=== PATIENT | female | born 1985 | race Caucasian/White ===

== ENCOUNTER 2020-08-22 21:20 | Emergency (ER) | payer MEDICAID, OTHER ==
[~2020-08-22] VITALS: Ht 170.2 cm; Wt 113.4 kg
[2020-08-22 21:51] LABS: BILIRUBIN,URINE NEGATIVE (NEGATIVE); CLARITY,URINE CLEAR; COLOR,URINE YELLOW; GLUCOSE, URINE (UA) NEGATIVE (NEGATIVE); KETONES,URINE 1+ (NEGATIVE); LEUKOCYTE ESTERASE ,URINE NEGATIVE (NEGATIVE); NITRITE,URINE NEGATIVE (NEGATIVE); PROTEIN,URINE NEGATIVE (NEGATIVE)
[2020-08-22 22:33] LABS: BACTERIA,URINE TRACE /HPF; WBC,URINE 0-2 /HPF
[2020-08-22 23:28] LABS: AMPHETAMINE SCREEN, URINE POSITIVE (NEGATIVE); BARBITURATE SCREEN URINE NEGATIVE (NEGATIVE); BENZODIAZEPINES SCREEN URINE NEGATIVE (NEGATIVE); CANNABINOID SCREEN, URINE NEGATIVE (NEGATIVE); COCAINE SCREEN URINE NEGATIVE (NEGATIVE); METHADONE STAT NEGATIVE (NEGATIVE); METHAMPHETAMINE SCREEN URINE S POSITIVE (NEGATIVE); OPIATE SCREEN URINE NEGATIVE (NEGATIVE); OXYCODONE STAT NEGATIVE (NEGATIVE); PROPOXYPHENE STAT NEGATIVE (NEGATIVE); TRICYCLIC ANTIDEPRESSANTS SCRE NEGATIVE (NEGATIVE)
[2020-08-22 23:29] LABS: BASOPHILS % (AUTO) 0 % (0-10); EOSINOPHILS % (AUTO) 0 % (0-10); HEMATOCRIT 32 % (35-52); HEMOGLOBIN 10.6 g/dL (11.5-16.0); LYMPHOCYTES % (AUTO) 16 % (12-44); MEAN CORPUSCULAR HEMOGLOBIN 30 pg (25-34); MEAN CORPUSCULAR HGB CONC 33 g/dL (32-36); MEAN CORPUSCULAR VOLUME 90 fL (80-99); MEAN PLATELET VOLUME 11.3 fL (9.0-12.2); MONOCYTES # (AUTO) 0.8 10^3/uL (0.0-1.0); MONOCYTES % (AUTO) 6 % (0-12); NEUTROPHILS # (AUTO) 9.8 10^3/uL (1.8-7.8); NEUTROPHILS % (AUTO) 77 % (42-75); PLATELET COUNT 232 10^3/uL (130-400); WHITE BLOOD COUNT 12.8 10^3/uL (4.3-11.0)
--- NOTE | 2020-08-22 23:30 | ED Back Pain ---
General Chief Complaint: Back Problems Stated Complaint: ABD PAIN Nursing Triage Note: PRESENTS VIA [facility] EMS [facility] FROM [facility] ER W/CO L FLANK PAIN AND UNKNOWN GESTATION . UPON ARRIVAL PT RATES L FLANK DISCOMFORT 2/10 ABD DESCRIBES DISCOMFORT "DULL." PT STATES SHE BELIEVES HER LAST PERIOD WAS SOMETIME IN MARCH. PT STATES L FLANK DISCOMFORT BEGAN AT APPROX 1700 THIS EVENING. PT DENIES VAGINAL BLEEDING OR DISCHARGE. PT STATES SHE SHOT UP METHAMPHETAMINE A COUPLE DAYS AGO. PT NOTED TO BE RESTLESS AND JITTERY. 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 Source of Information: Patient Exam Limitations: No Limitations History of Present Illness Date Seen by Provider: Aug 22, 2020 Time Seen by Provider: 22:41 Initial Comments Patient presents ER by EMS from [facility] with a chief complaint of 2:00 in the afternoon she had left flank pain radiating down from her ribs to her kidney to her groin. She has no history of kidney stones. No hematuria or dysuria. She thinks she is around 20 weeks but is uncertain. She has no care. This is a G3. She states she had a little discomfort yesterday and used some methamphetamines yesterday as well. No fevers chills nausea or vomiting. Her pain was an 8 out of 10 but by the time she arrived here it was a 2 out of 10. Allergies and Home Medications Allergies Coded Allergies: morphine (Verified Adverse Reaction, Unknown, Hives, 08/22/20) Home Medications Cephalexin 500 Mg Tablet, 500 MG PO TID Prescribed by: SUSAN RIGGINS on 08/25/20 1154 Hydrocodone/Acetaminophen 1 Each Tablet, 1 TAB PO Q6H PRN for PAIN-MODERATE (5- 7) Prescribed by: SUSAN RIGGINS on 08/25/20 1155 Patient Home Medication List Home Medication List Reviewed: Yes Review of Systems Constitutional: No chills, No diaphoresis EENTM: No ear discharge, No ear pain Respiratory: No cough, No phlegm, No short of breath Cardiovascular: No chest pain, No palpitations Gastrointestinal: abdominal pain; No constipation, No diarrhea, No nausea Genitourinary: No discharge, No dysuria Musculoskeletal: No back pain, No joint pain All Other Systems Reviewed Negative Unless Noted: Yes Past Rxewftr-Wfpful-Fbmlhk Hx Patient Social History Tobacco Use?: Yes Smoking Status: Current Everyday Smoker Substance type: Methamphetamine, Hallucinogens Pt feels they are or have been: No Physical Exam Vital Signs Vital Signs - First Documented 08/22/20 21:20 Temp 35.8 Pulse 104 Resp 20 B/P (MAP) 134/105 (115) Pulse Ox 100 O2 Delivery Room Air Capillary Refill : Less Than 3 Seconds Height, Weight, BMI Height: '" Weight: lbs. oz. kg; 39.00 BMI Method: General Appearance: WD/WN, Mild Distress HEENT: PERRL/EOMI, Pharynx Normal, Moist Mucous Membranes Neck: Full Range of Motion, Normal Inspection Cardiovascular: Regular Rate, Rhythm, No Edema, Normal Peripheral Pulses Respiratory: Lungs Clear, Normal Breath Sounds, No Accessory Muscle Use, No Respiratory Distress Gastrointestinal: Normal Bowel Sounds, Non Tender, Soft Extremity: Normal Capillary Refill, Normal Inspection, No Pedal Edema Neurologic/Psychiatric: Alert, Oriented x3, Other (Irregular, nonrhythmic jerking motions, constantly in motion.) Skin: Normal Color, Warm/Dry Progress/Results/Core Measures Results/Orders Lab Results Laboratory Tests Test 08/22/20 21:30 08/22/20 23:23 08/23/20 00:00 Range/Units Urine Color YELLOW Urine Clarity CLEAR Urine pH 7.0 5-9 Urine Specific [place] <=1.005 1.016-1.022 Urine Protein NEGATIVE NEGATIVE Urine Glucose (UA) NEGATIVE NEGATIVE Urine Ketones 1+ H NEGATIVE Urine Nitrite NEGATIVE NEGATIVE Urine Bilirubin NEGATIVE NEGATIVE Urine Urobilinogen 0.2 < = 1.0 MG/DL Urine Leukocyte Esterase NEGATIVE NEGATIVE Urine RBC (Auto) 3+ H NEGATIVE Urine RBC 10-25 H /HPF Urine WBC 0-2 /HPF Urine Crystals NONE /LPF Urine Bacteria TRACE /HPF Urine Casts NONE /LPF Urine Mucus NEGATIVE /LPF Urine Culture Indicated NO Urine Opiates Screen NEGATIVE NEGATIVE Urine Oxycodone Screen NEGATIVE NEGATIVE Urine Methadone Screen NEGATIVE NEGATIVE Urine Propoxyphene Screen NEGATIVE NEGATIVE Urine Barbiturates Screen NEGATIVE NEGATIVE Ur Tricyclic Antidepressants Screen NEGATIVE NEGATIVE Urine Phencyclidine Screen NEGATIVE NEGATIVE Urine Amphetamines Screen POSITIVE H NEGATIVE Urine Methamphetamines Screen POSITIVE H NEGATIVE Urine Benzodiazepines Screen NEGATIVE NEGATIVE Urine Cocaine Screen NEGATIVE NEGATIVE Urine Cannabinoids Screen NEGATIVE NEGATIVE White Blood Count 12.8 H 4.3-11.0 10^3/uL Red Blood Count 3.56 L 3.80-5.11 10^6/uL Hemoglobin 10.6 L 11.5-16.0 g/dL Hematocrit 32 L 35-52 % Mean Corpuscular Volume 90 80-99 fL Mean Corpuscular Hemoglobin 30 25-34 pg Mean Corpuscular Hemoglobin Concent 33 32-36 g/dL Red Cell Distribution Width 14.1 10.0-14.5 % Platelet Count 232 130-400 10^3/uL Mean Platelet Volume 11.3 9.0-12.2 fL Immature Granulocyte % (Auto) 1 % Neutrophils (%) (Auto) 77 H 42-75 % Lymphocytes (%) (Auto) 16 12-44 % Monocytes (%) (Auto) 6 0-12 % Eosinophils (%) (Auto) 0 0-10 % Basophils (%) (Auto) 0 0-10 % Neutrophils # (Auto) 9.8 H 1.8-7.8 10^3/uL Lymphocytes # (Auto) 2.0 1.0-4.0 10^3/uL Monocytes # (Auto) 0.8 0.0-1.0 10^3/uL Eosinophils # (Auto) 0.0 0.0-0.3 10^3/uL Basophils # (Auto) 0.0 0.0-0.1 10^3/uL Immature Granulocyte # (Auto) 0.1 0.0-0.1 10^3/uL Sodium Level 140 135-145 MMOL/L Potassium Level 3.9 3.6-5.0 MMOL/L Chloride Level 109 H 98-107 MMOL/L Carbon Dioxide Level 20 L 21-32 MMOL/L Anion Gap 11 5-14 MMOL/L Blood Urea Nitrogen 6 L 7-18 MG/DL Creatinine 0.62 0.60-1.30 MG/DL Estimat Glomerular Filtration Rate > 60 BUN/Creatinine Ratio 10 Glucose Level 96 70-105 MG/DL Calcium Level 8.1 L 8.5-10.1 MG/DL Corrected Calcium 8.7 8.5-10.1 MG/DL Total Bilirubin 0.5 0.1-1.0 MG/DL Aspartate Amino Transf (AST/SGOT) 15 5-34 U/L Alanine Aminotransferase (ALT/SGPT) 20 0-55 U/L Alkaline Phosphatase 60 40-136 U/L C-Reactive Protein High Sensitivity 2.00 H 0.00-0.50 MG/DL Total Protein 6.2 L 6.4-8.2 GM/DL Albumin 3.2 3.2-4.5 GM/DL Human Chorionic Gonadotropin, Quant 3252 H <5 MIU/ML My Orders Orders - CLIFF ALANIZ Ua Culture If Indicated (08/22/20 21:46) Urine Bedside (08/22/20 21:46) Cbc With Automated Diff (08/22/20 23:02) Comprehensive Metabolic Panel (08/22/20 23:02) Hs C Reactive Protein (08/22/20 23:02) Drug Screen Stat (Urine) (08/22/20 23:02) Us Ob Preg Late(14-40wks)[id number] (08/23/20 00:13) Ed Iv/Invasive Line Start (08/23/20 00:13) Hcg,Quantitative (08/23/20 00:22) Vital Signs/I&O 08/22/20 08/23/20 21:20 01:45 Temp 35.8 36.9 Pulse 104 94 Resp 20 17 B/P (MAP) 134/105 (115) 107/55 (115) Pulse Ox 100 99 O2 Delivery Room Air Room Air Blood Pressure Mean: 115 Progress Progress Note : Time: 23:28 Progress Note Patient does not seem to be in any acute distress now. She is produced urine which does have some blood in it. It is very likely if she had a kidney stone she has already passed it as she is no longer in any acute distress. We have not given her anything for pain. She is ambulating. We will obtain some labs. Urinalysis and drug screen from [facility] demonstrates MDMA as well as methamphetamines positive. Diagnostic Imaging Diagonstic Imaging: Ultrasound Plain Films/CT/US/NM/MRI: abdomen Comments 23-week healthy intrauterine gestation with plenty of movement and heart tones 140. Limited unremarkable pelvic ultrasound with 23-week intrauterine and heart rate of 140 bpm. Anterior placenta with no placental previa. Normal amniotic fluid volume. Estimated date of delivery 12-20-2020 [facility]. [place], [place] NAME: EVER CROWE MED REC#: [id number] PT STATUS: DEP ER : 1985 PHYSICIAN: CLIFF ALANIZ MD ADMIT DATE: 08/22/20/ER Signed Date of Exam:08/23/20 US OB PREG LATE(14-40WKS)[id number] INDICATION: Left-sided abdominal pain. Methamphetamine use. Rule out ectopic. TECHNIQUE: Multiple real-time grayscale images were obtained over the gravid uterus. COMPARISON: None FINDINGS: Limited obstetric ultrasound demonstrates single live intrauterine in breech presentation. Anatomic measurements correspond to a 23 week 0 day gestation. heart rate 140 bpm. Anterior placenta without evidence of previa. MICHAEL 12.9 cm. Left ovary measures 3.2 x 1.4 x 3.3 cm. No adnexal mass or fluid collections. Normal flow by color Doppler in the left ovary. The right ovary is not identified. IMPRESSION: Unremarkable limited obstetric ultrasound with anatomic measurements corresponding to a 23 week, 0 day gestation. heart rate 140 bpm. Biometrical measurements are as follows: Biparietal 5.67 cm, age 23 weeks 3 days. Head circumference 21.04 cm, age 23 weeks 1 days. Abdominal circumference 17.60 cm, age 22 weeks 4 days. Femur length 3.9 cm, age 22 weeks 4 days. Sonographic estimate age: 23 weeks 0 days. Sonographic estimated date of delivery: 12/20/2020. Estimated Weight: 519 gm (+/- 76g gm). LMP percentile: %. heart rate: 140 beats per minute. number: 1 of 1. Dictated by: Dictated on workstation # [id number] Dict: 08/23/20 0808 Trans: 08/23/20 1205 [facility] [id number] Interpreted by: SUSAN STEWART MD Electronically signed by: SUSAN STEWART MD 08/23/20 1205 Reviewed: Reviewed by Me Consults : Consulting Physician: GALINA VALDIVIA DO Consults Notes Discussed the case with Dr. Valdivia, obstetrics and he recommends ultrasound at this time. If the patient is still calm and comfortable and not having any pain then a CT to look for kidney stone is probably not indicated right now. He agrees that the pain sounds like a kidney stone given her little bit of blood in the urine however without having any previous care we cannot rule out ectopic. Departure Impression Primary Impression: Hematuria Qualified Codes: R31.9 - Hematuria, unspecified Additional Impressions: Flank pain Qualified Codes: Z3A.23 - 23 weeks gestation of Methamphetamine dependence Disposition: HOME, SELF-CARE Condition: Stable Departure-Patient Inst. Decision time for Depature: 01:26 Referrals: GALINA VALDIVIA DENNIS G MD SHAW, ANGELA C DO Patient Instructions: Drug Abuse and Drug Addiction (DC), Care, Flank Pain Add. Discharge Instructions: Please establish care with a naturopathic doctor at your earliest convenience. I implore you to stop using methamphetamines. If you need help stopping methamphetamines you can contact [facility] as they do have some doctors who specialize in addiction medicine. Tylenol 1000 mg every 8 hours as necessary for pain. Drink plenty of fluids. All discharge instructions reviewed with patient and/or family. Voiced understanding. CLIFF ALANIZ Aug 22, 2020 23:30
[2020-08-22 23:43] LABS: ALBUMIN 3.2 GM/DL (3.2-4.5); CHLORIDE 109 MMOL/L (98-107); POTASSIUM 3.9 MMOL/L (3.6-5.0); SODIUM 140 MMOL/L (135-145)
[2020-08-22 23:44] LABS: CALCIUM 8.1 MG/DL (8.5-10.1)
[2020-08-22 23:45] LABS: GLUCOSE 96 MG/DL (70-105); TOTAL PROTEIN 6.2 GM/DL (6.4-8.2)
[2020-08-22 23:46] LABS: CARBON DIOXIDE 20 MMOL/L (21-32)
[2020-08-22 23:47] LABS: BILIRUBIN,TOTAL 0.5 MG/DL (0.1-1.0)
[2020-08-22 23:49] LABS: ALKALINE PHOSPHATASE 60 U/L (40-136); CREATININE SERUM 0.62 MG/DL (0.60-1.30); GFR ESTIMATED > 60
[2020-08-22 23:50] LABS: BUN/CREATININE RATIO 10
[2020-08-22 23:52] LABS: ALANINE AMINOTRANSFERASE 20 U/L (0-55)
[2020-08-23 01:45] VITALS: BP 107/55
--- NOTE | 2020-08-23 08:17 | Diagnostic Imaging Report ---
INDICATION: Left-sided abdominal pain. Methamphetamine use. Rule out ectopic. TECHNIQUE: Multiple real-time grayscale images were obtained over the gravid uterus. COMPARISON: None FINDINGS: Limited obstetric ultrasound demonstrates single live intrauterine in breech presentation. Anatomic measurements correspond to a 23 week 0 day gestation. heart rate 140 bpm. Anterior placenta without evidence of previa. MICHAEL 12.9 cm. Left ovary measures 3.2 x 1.4 x 3.3 cm. No adnexal mass or fluid collections. Normal flow by color Doppler in the left ovary. The right ovary is not identified. IMPRESSION: Unremarkable limited obstetric ultrasound with anatomic measurements corresponding to a 23 week, 0 day gestation. heart rate 140 bpm. Biometrical measurements are as follows: Biparietal 5.67 cm, age 23 weeks 3 days. Head circumference 21.04 cm, age 23 weeks 1 days. Abdominal circumference 17.60 cm, age 22 weeks 4 days. Femur length 3.9 cm, age 22 weeks 4 days. Sonographic estimate age: 23 weeks 0 days. Sonographic estimated date of delivery: 12/20/2020. Estimated Weight: 519 gm (+/- 76g gm). LMP percentile: %. heart rate: 140 beats per minute. number: 1 of 1. Dictated by: Dictated on workstation # [id number]
== END 2020-08-23 01:45 | disposition home or self-care (01) ==
LOC: ER 21:21
DX: O26.892 Other specified pregnancy related conditions, second trimester (principal); R31.9 Hematuria, unspecified; R10.9 Unspecified abdominal pain; F15.20 Other stimulant dependence, uncomplicated; F17.200 Nicotine dependence, unspecified, uncomplicated; Z3A.20 20 weeks gestation of pregnancy
CPT/HCPCS: 36415; 76805; 80053; 80306; 81000; 84702; 84703; 85025; 86141

== ENCOUNTER 2020-08-25 09:09 | Emergency (ER) | payer MEDICAID ==
[~2020-08-25] VITALS: Ht 167.7 cm; Wt 112.0 kg
--- NOTE | 2020-08-25 09:55 | ED Abdominal Pain ---
General Chief Complaint: Back Problems Stated Complaint: BACK PAIN Nursing Triage Note: Pt ambulatory into ER with complaint of back pain since last night. Pt states that she was in the ER two nights ago for the same thing, but they didn't do much. She states that they believe it to be a kidney stone but do to being they wouldnt scan her. Pain at a 6/10 on Lower Left side. Source of Information: Patient Exam Limitations: No Limitations History of Present Illness Date Seen by Provider: Aug 25, 2020 Time Seen by Provider: 09:35 Initial Comments Patient is a 34-year-old female who presents to the emergency department today with a chief complaint of left-sided back pain and left flank pain onset last evening. Patient was here in the emergency room 3 days ago with similar complaints and was diagnosed clinically with a kidney stone. Patient is approximately 23 weeks , . Last delivery was 2-1/2 years ago. Patient denies any dysuria or urgency but does have urinary frequency. Labs were reviewed from her visit 3 days ago she had normal renal function and hematuria without any signs of infection. She did have a OB ultrasound which showed a normal intrauterine at 23 weeks without any obvious abnormalities. Normal placenta. Patient states that she got better for a day or so and then last evening pain recurred. She did take Tylenol, 2 tablets about 2 hours prior to arrival without any relief of symptoms. Patient rates her pain at "6". She denies abnormal vaginal discharge or vaginal bleeding. No recent fevers or chills. No other complaints of illness or injury. Patient did not have a renal ultrasound done 3 days ago to evaluate for hydronephrosis. All other review of systems reviewed and negative except as stated above. Timing/Duration: 12-24 Hours Severity/Quality: Moderate Location: LUQ, LLQ Radiation: Flank Associated Symptoms: Nausea/Vomiting Allergies and Home Medications Allergies Coded Allergies: morphine (Verified Adverse Reaction, Unknown, Hives, 08/22/20) Patient Home Medication List Home Medication List Reviewed: Yes Review of Systems Review of Systems Constitutional: see HPI EENTM: No Symptoms Reported Respiratory: Other (Hurts to take a deep breath on the left) Cardiovascular: No Symptoms Reported Gastrointestinal: Abdominal Pain Genitourinary: Frequency Musculoskeletal: no symptoms reported Skin: no symptoms reported All Other Systems Reviewed Negative Unless Noted: Yes Past Yjnrfux-Cddxzo-Wjyyzj Hx Patient Social History Tobacco Use?: No Use of E-Cig and/or Vaping dev: No Substance use?: Yes Substance type: Methamphetamine Alcohol Use?: No Pt feels they are or have been: No Physical Exam Vital Signs Vital Signs - First Documented 08/25/20 09:22 Temp 36.8 Pulse 98 Resp 20 B/P (MAP) 138/84 (102) Pulse Ox 100 O2 Delivery Room Air Capillary Refill : Less Than 3 Seconds Height/Weight/BMI Height: '" Weight: lbs. oz. kg; 39.00 BMI Method: General Appearance: WD/WN, no apparent distress HEENT: PERRL/EOMI Neck: full range of motion Respiratory: lungs clear, normal breath sounds, no respiratory distress, no accessory muscle use Cardiovascular: regular rate, rhythm Gastrointestinal: soft, tenderness (Left flank), other (Gravid uterus just above the umbilicus) Back: normal inspection, CVA tenderness (L) Neurologic/Psychiatric: alert, normal mood/affect, oriented x 3 Skin: normal color, warm/dry Progress/Results/Core Measures Results/Orders Lab Results Laboratory Tests Test 08/25/20 09:44 08/25/20 09:57 Range/Units Urine Color YELLOW Urine Clarity CLEAR Urine pH 7.0 5-9 Urine Specific [place] 1.010 L 1.016-1.022 Urine Protein 1+ H NEGATIVE Urine Glucose (UA) NEGATIVE NEGATIVE Urine Ketones NEGATIVE NEGATIVE Urine Nitrite NEGATIVE NEGATIVE Urine Bilirubin NEGATIVE NEGATIVE Urine Urobilinogen 0.2 < = 1.0 MG/DL Urine Leukocyte Esterase 3+ H NEGATIVE Urine RBC (Auto) 3+ H NEGATIVE Urine RBC 10-25 H /HPF Urine WBC 50-100 H /HPF Urine Squamous Epithelial Cells NONE /HPF Urine Crystals NONE /LPF Urine Bacteria TRACE /HPF Urine Casts NONE /LPF Urine Mucus NEGATIVE /LPF Urine Culture Indicated YES Sodium Level 140 135-145 MMOL/L Potassium Level 4.3 3.6-5.0 MMOL/L Chloride Level 108 H 98-107 MMOL/L Carbon Dioxide Level 22 21-32 MMOL/L Anion Gap 10 5-14 MMOL/L Blood Urea Nitrogen 3 L 7-18 MG/DL Creatinine 0.56 L 0.60-1.30 MG/DL Estimat Glomerular Filtration Rate > 60 BUN/Creatinine Ratio 5 Glucose Level 97 70-105 MG/DL Calcium Level 8.5 8.5-10.1 MG/DL My Orders Orders - SUSAN RIGGINS MD Basic Metabolic Panel (08/25/20 09:44) Ua Culture If Indicated (08/25/20 09:44) Us Renal Bilateral [id number] (08/25/20 09:44) Urine Culture (08/25/20 09:44) Hydrocodone/Apap 5/325 Tablet (Lortab 5 (08/25/20 11:30) Medications Given in ED Current Medications Medications Dose Ordered Sig/Rashid Route Start Time Stop Time Status Last Admin Dose Admin Acetaminophen/ Hydrocodone Bitart 1 ea ONCE ONCE PO 08/25/20 11:30 08/25/20 11:31 DC 08/25/20 11:29 1 EA Vital Signs/I&O 08/25/20 09:22 Temp 36.8 Pulse 98 Resp 20 B/P (MAP) 138/84 (102) Pulse Ox 100 O2 Delivery Room Air Blood Pressure Mean: 102 Diagnostic Imaging Diagonstic Imaging: Ultrasound Plain Films/CT/US/NM/MRI: other (Renal) Comments [facility]. [place], [place] NAME: EVER CROWE Jordi [facility] REC#: [id number] PT STATUS: REG ER : 1985 PHYSICIAN: SUSAN RIGGINS MD ADMIT DATE: 08/25/20/ER Draft Date of Exam:08/25/20 US RENAL BILATERAL [id number] PROCEDURE: US Renal Bilateral. TECHNIQUE: Multiple real-time grayscale images were obtained over the kidneys in various projections bilaterally. INDICATION: Left flank pain and hematuria. Patient is 23 weeks . Right kidney measures 10.7 x 5.1 x 6.0 cm and the left kidney measures 12.8 x 5.4 x 6.9 cm. Cortical thickness and echogenicity is normal bilaterally. There is mild renal pelvic dilatation involving both kidneys. There are 2 echogenic foci within the left kidney 5 to 7 mm in size suggestive of small calculi. Bladder demonstrates bilateral ureteral jets. IMPRESSION: 1. Left-sided nephrolithiasis. There is mild dilatation of the renal pelves bilaterally. No definite hydronephrosis is seen. Dictated on workstation # [id number] Dict: 08/25/20 1115 Trans: 08/25/20 1127 [facility] [id number] Interpreted by: REBEKAH BECKFORD MD Electronically signed by: Departure Impression Primary Impression: Nephrolithiasis Additional Impression: Urinary tract infection Disposition: 01 HOME, SELF-CARE Condition: Stable Departure-Patient Inst. Decision time for Depature: 11:52 Referrals: MAURICIO LMABERT DO (PCP/Family) Primary Care Physician Patient Instructions: Kidney Stone Diet Add. Discharge Instructions: Drink lots of fluids to stay well-hydrated. Strain your urine until you passed your kidney stone. If you develop fever, worsening pain, more blood in your urine or any other emergent concerns develop please come back to the emergency room for reevaluation. We have put you on some antibiotics at this time to cover for bacteria in your urine. Take this for the next 7 days. Please keep your follow-up appointment with care. Scripts Cephalexin (Cephalexin) 500 Mg Tablet 500 MG PO TID, #21 TAB Prov: SUSAN RIGGINS MD 08/25/20 Hydrocodone/Acetaminophen (Hydrocodone-Acetamin 5-325 mg) 1 Each Tablet 1 TAB PO Q6H PRN for PAIN-MODERATE (5-7), #12 TAB Prov: SUSAN RIGGINS MD 08/25/20 SUSAN RIGGINS MD Aug 25, 2020 09:55
[2020-08-25 09:57] LABS: BILIRUBIN,URINE NEGATIVE (NEGATIVE); CLARITY,URINE CLEAR; COLOR,URINE YELLOW; GLUCOSE, URINE (UA) NEGATIVE (NEGATIVE); KETONES,URINE NEGATIVE (NEGATIVE); LEUKOCYTE ESTERASE ,URINE 3+ (NEGATIVE); NITRITE,URINE NEGATIVE (NEGATIVE); PROTEIN,URINE 1+ (NEGATIVE)
[2020-08-25 10:04] LABS: BACTERIA,URINE TRACE /HPF; WBC,URINE 50-100 /HPF
[2020-08-25 10:15] LABS: CHLORIDE 108 MMOL/L (98-107); POTASSIUM 4.3 MMOL/L (3.6-5.0); SODIUM 140 MMOL/L (135-145)
[2020-08-25 10:16] LABS: CALCIUM 8.5 MG/DL (8.5-10.1); GLUCOSE 97 MG/DL (70-105)
[2020-08-25 10:18] LABS: CARBON DIOXIDE 22 MMOL/L (21-32)
[2020-08-25 10:20] LABS: CREATININE SERUM 0.56 MG/DL (0.60-1.30); GFR ESTIMATED > 60
[2020-08-25 10:21] LABS: BUN/CREATININE RATIO 5
--- NOTE | 2020-08-25 11:28 | Diagnostic Imaging Report ---
PROCEDURE: US Renal Bilateral. TECHNIQUE: Multiple real-time grayscale images were obtained over the kidneys in various projections bilaterally. INDICATION: Left flank pain and hematuria. Patient is 23 weeks . Right kidney measures 10.7 x 5.1 x 6.0 cm and the left kidney measures 12.8 x 5.4 x 6.9 cm. Cortical thickness and echogenicity is normal bilaterally. There is mild renal pelvic dilatation involving both kidneys. There are 2 echogenic foci within the left kidney 5 to 7 mm in size suggestive of small calculi. Bladder demonstrates bilateral ureteral jets. IMPRESSION: 1. Left-sided nephrolithiasis. There is mild dilatation of the renal pelves bilaterally. No definite hydronephrosis is seen. Dictated by: Dictated on workstation # [id number]
[2020-08-25] MEDS ORDERED: HYDROcodone/APAP 5 MG/325 MG (LORTAB) TAB PO ONE (11:30)
[2020-08-25] MEDS ORDERED: CEPH500T PO (11:54)
[2020-08-25] MEDS ORDERED: ACHD5005 PO (11:54)
[2020-08-25 12:04] VITALS: BP 118/74
== END 2020-08-25 12:04 | disposition home or self-care (01) ==
LOC: EDUNIT# 09:09 → ER 09:10
DX: O23.42 Unspecified infection of urinary tract in pregnancy, second trimester (principal); N20.0 Calculus of kidney; Z3A.23 23 weeks gestation of pregnancy; Z88.5 Allergy status to narcotic agent
CPT/HCPCS: 36415; 76770; 80048; 81000; 87077; 87088; 87186

== ENCOUNTER 2020-11-26 18:49 | Inpatient (IN) | payer MEDICAID ==
[2020-11-26] VITALS (8 sets, daily range): BP systolic 126–152; BP diastolic 66–97
[~2020-11-26] VITALS: Ht 197.5 cm; Wt 118.5 kg
[~2020-11-26 18:49] MED LIST: ACHD5005 PO; CEPH500T PO
[2020-11-26 19:50] LABS: BILIRUBIN,URINE NEGATIVE (NEGATIVE); CLARITY,URINE CLEAR; COLOR,URINE YELLOW; GLUCOSE, URINE (UA) NEGATIVE (NEGATIVE); KETONES,URINE NEGATIVE (NEGATIVE); LEUKOCYTE ESTERASE ,URINE 1+ (NEGATIVE); NITRITE,URINE NEGATIVE (NEGATIVE); PROTEIN,URINE TRACE (NEGATIVE)
[2020-11-26 19:58] LABS: BACTERIA,URINE FEW /HPF
[2020-11-26 20:02] LABS: AMPHETAMINE SCREEN, URINE NEGATIVE (NEGATIVE); BARBITURATE SCREEN URINE NEGATIVE (NEGATIVE); BENZODIAZEPINES SCREEN URINE NEGATIVE (NEGATIVE); CANNABINOID SCREEN, URINE POSITIVE (NEGATIVE); COCAINE SCREEN URINE NEGATIVE (NEGATIVE); METHADONE STAT NEGATIVE (NEGATIVE); METHAMPHETAMINE SCREEN URINE S NEGATIVE (NEGATIVE); OPIATE SCREEN URINE NEGATIVE (NEGATIVE); OXYCODONE STAT NEGATIVE (NEGATIVE); PROPOXYPHENE STAT NEGATIVE (NEGATIVE); TRICYCLIC ANTIDEPRESSANTS SCRE NEGATIVE (NEGATIVE)
--- NOTE | 2020-11-26 20:50 | History & Physical-OB/GYN ---
ALAS,TERA 11/26/202049: OB - Chief Complaint & HPI Date/Time Date of Admission: Date of Admission: 11/26/20 Date seen by a Provider: Nov 26, 2020 Chief Complaint/History OB-Reason for Admission/Chief: Obstetrical Complication (possible intrahepatic cholestasis) Hx : 3 Hx Para: 2 Expected Date of Delivery: Dec 07, 2020 Gestational Age in Weeks: 37 Gestational Age in Days: 6 Allergies and Home Medications Allergies Coded Allergies: morphine (Verified Adverse Reaction, Unknown, Hives, 08/22/20) Patient Home Medication List Home Medication List Reviewed: Yes Discontinued Medications Cephalexin (Cephalexin) 500 Mg Tablet, 500 MG PO TID Discontinued Reason: No Longer Taking Prescribed by: SUSAN RIGGINS on 08/25/20 115 Last Action: Discontinued Hydrocodone/Acetaminophen (Hydrocodone-Acetamin 5-325 mg) 1 Each Tablet, 1 TAB PO Q6H PRN for PAIN-MODERATE (5-7) Discontinued Reason: No Longer Taking Prescribed by: SUSAN RIGGINS on 08/25/20 1155 Last Action: Discontinued OB - History Hx of Present Care: Yes (Minimal) Ultrasounds: Other (US at approximately 31weeks gestation) Obstetrical Complications: Other (possible intrahepatic cholestasis) Medical Complications: None Obstetrical History Hx : 3 Hx Para: 2 Hx # Term Pregnancies: 2 Number of Living Children: 2 Hx Complication: Yes (intrahepatic cholestasis with second ) Delivery History Hx Section: Yes (both past pregnancies were delivered via section) Patient Past Medical History Mild single current episode of major depressive disorder Fatigue Social History/Family History Alcohol Use: Denies Use Recreational Drug Use: Yes (Positive [facility] urine drug screen) Smoking Cessation: Current some day smoker (21 year history of smoking off and on, smokes up to 1/2 pack a day, has not smoked past 5 days) Immunizations Hepatitis A: No Tetanus Booster (TDap): Less than 5yrs Rubella: unknown RPR/VDRL: Unknown GBS Status: Unknown HBsAG: Unknown OB - Admission Exam Physical Exam Abdomen: Gravid Extremities: Other (Mild swelling of dorsal surface of feet) Cervical Dilatation: Fingertip Effacement: 0% Station: -3 Membranes: Intact Heart Rate: 130's Short Term Variability: Present Care Home Variability: Average (6-25) Contractions on Admission: None Gonzalez Scoring Tool (Modified) Dilation (cm): 0/Closed (0) Effacement (%): 0-30% (0) Descent/Station: -3 (0) Cervix Consistency: Firm (0) Cervix Position: Anterior (2) Add 1 point for: Each previous vaginal delivery (1) (2) Labs Blood type unknown, rubella immunity unknown, HIV/HepB/RPR unknown, GBS unknown Laboratory Tests Test 11/26/20 19:00 Range/Units Urine Color YELLOW Urine Clarity CLEAR Urine pH 6.0 5-9 Urine Specific [place] 1.010 L 1.016-1.022 Urine Protein TRACE H NEGATIVE Urine Glucose (UA) NEGATIVE NEGATIVE Urine Ketones NEGATIVE NEGATIVE Urine Nitrite NEGATIVE NEGATIVE Urine Bilirubin NEGATIVE NEGATIVE Urine Urobilinogen 0.2 < = 1.0 MG/DL Urine Leukocyte Esterase 1+ H NEGATIVE Urine RBC (Auto) 1+ H NEGATIVE Urine RBC 5-10 H /HPF Urine WBC 5-10 H /HPF Urine Squamous Epithelial Cells NONE /HPF Urine Renal Epithelial Cells NONE /HPF Urine Crystals NONE /LPF Urine Bacteria FEW H /HPF Urine Casts NONE /LPF Urine Mucus NEGATIVE /LPF Urine Culture Indicated YES Urine Opiates Screen NEGATIVE NEGATIVE Urine Oxycodone Screen NEGATIVE NEGATIVE Urine Methadone Screen NEGATIVE NEGATIVE Urine Propoxyphene Screen NEGATIVE NEGATIVE Urine Barbiturates Screen NEGATIVE NEGATIVE Ur Tricyclic Antidepressants Screen NEGATIVE NEGATIVE Urine Phencyclidine Screen NEGATIVE NEGATIVE Urine Amphetamines Screen NEGATIVE NEGATIVE Urine Methamphetamines Screen NEGATIVE NEGATIVE Urine Benzodiazepines Screen NEGATIVE NEGATIVE Urine Cocaine Screen NEGATIVE NEGATIVE Urine Cannabinoids Screen POSITIVE H NEGATIVE OB - Assessment/Plan/Diagnosis Assessment Assessment: other (possible obstetrical complication of intrahepatic cholestasis) Admission Dx possible intrahepatic cholestasis Admission Status: Other (Clinic) Plan Problems: (1) Itching Assessment & Plan: Possible intrahepatic cholestasis; obtaining bile acid levels, AST, ALT (2) Hypertension Assessment & Plan: Possible pre-eclampsia; order CBC, ALT, AST, UA, uric acid levels, and LDH Qualifiers: Qualified Codes: I15.8 - Other secondary hypertension (3) Swelling Assessment & Plan: possible pre-eclampsia, order CBC, ALT, AST, UA, uric acid levels, and LDH FREEDOM KUMAR MD 11/27/20 0713: OB - Chief Complaint & HPI Date/Time Time Seen by a Provider: 21:00 Allergies and Home Medications Allergies Coded Allergies: morphine (Verified Adverse Reaction, Unknown, Hives, 08/22/20) Patient Home Medication List Discontinued Medications Cephalexin (Cephalexin) 500 Mg Tablet, 500 MG PO TID Discontinued Reason: No Longer Taking Prescribed by: SUSAN RIGGINS on 08/25/20 1154 Last Action: Discontinued Hydrocodone/Acetaminophen (Hydrocodone-Acetamin 5-325 mg) 1 Each Tablet, 1 TAB PO Q6H PRN for PAIN-MODERATE (5-7) Discontinued Reason: No Longer Taking Prescribed by: SUSAN RIGGINS on 08/25/20 1155 Last Action: Discontinued Supervisory-Addendum Brief Verification & Attestation Participated in pt care: history Personally performed: supervision of care Care discussed with: Medical Student Procedures: n/a History per student, I did not see patient last night, however labs came back later in the evening consistent with preeclampsia, discussed with Dr. Valdivia information clerk for [employer] and plan for at 7 am. TERA ALAS Nov 26, 2020 20:50 FREEDOM KUMAR MD Nov 27, 2020 07:13
[2020-11-26 22:55] LABS: BASOPHILS % (AUTO) 0 % (0-10); EOSINOPHILS % (AUTO) 0 % (0-10); HEMATOCRIT 33 % (35-52); HEMOGLOBIN 10.5 g/dL (11.5-16.0); LYMPHOCYTES # (AUTO) 2.9 10^3/uL (1.0-4.0); LYMPHOCYTES % (AUTO) 20 % (12-44); MEAN CORPUSCULAR HEMOGLOBIN 27 pg (25-34); MEAN CORPUSCULAR HGB CONC 32 g/dL (32-36); MEAN CORPUSCULAR VOLUME 84 fL (80-99); MEAN PLATELET VOLUME 12.4 fL (9.0-12.2); MONOCYTES # (AUTO) 0.8 10^3/uL (0.0-1.0); MONOCYTES % (AUTO) 6 % (0-12); NEUTROPHILS # (AUTO) 10.6 10^3/uL (1.8-7.8); NEUTROPHILS % (AUTO) 73 % (42-75); PLATELET COUNT 257 10^3/uL (130-400); WHITE BLOOD COUNT 14.6 10^3/uL (4.3-11.0)
[2020-11-26 23:01] LABS: POTASSIUM 3.8 MMOL/L (3.6-5.0)
[2020-11-26 23:02] LABS: CALCIUM 8.9 MG/DL (8.5-10.1)
[2020-11-26 23:03] LABS: TOTAL PROTEIN 7.1 GM/DL (6.4-8.2)
[2020-11-26 23:05] LABS: BILIRUBIN,TOTAL 0.3 MG/DL (0.1-1.0)
[2020-11-26 23:07] LABS: CREATININE SERUM 0.59 MG/DL (0.60-1.30)
[2020-11-26] MEDS ORDERED: LACTATED RINGERS 1,000 ML IV ONE (23:41)
[2020-11-27] VITALS (17 sets, daily range): BP systolic 111–141; BP diastolic 59–91
[2020-11-27] MEDS ORDERED: D5 LR IV SOLUTION 1,000 ML IV ONE (00:22)
[2020-11-27] MEDS: D5 LR IV SOLUTION 1,000 ML IV SCH (00:27)
[2020-11-27] MEDS ORDERED: ceFAZolin 2 GM IV Premixed 50 ML IV ONE (05:45)
[2020-11-27] MEDS ORDERED: METOCLOPRAMIDE INJ 10 MG/2 ML (REGLAN) IV ONE (06:00)
[2020-11-27] MEDS ORDERED: CITRIC ACID/SOB CIT (BICITRA) 30 ML UDC PO ONE (06:00)
[2020-11-27] MEDS ORDERED: LACTATED RINGERS 1,000 ML IV PRN ×2 (06:00)
[2020-11-27] MEDS ORDERED: FAMOTIDINE 20MG/2ML IV (PEPCID) ONE (06:27)
[2020-11-27] MEDS ORDERED: fentaNYL INJ 100 MCG/2 ML AMP ONE (06:33)
[2020-11-27] MEDS ORDERED: ROPIVACAINE 5MG/ML 30ML VIAL ONE (06:33)
--- NOTE | 2020-11-27 06:47 | History & Physical-OB ---
OB - Chief Complaint & HPI Date/Time Date of Admission: Date of Admission: Nov 27, 2020 at 00:15 Date seen by a Provider: Nov 27, 2020 Time Seen by a Provider: 06:45 Chief Complaint/History OB-Reason for Admission/Chief: Section Hx : 3 Hx Para: 2 Expected Date of Delivery: Dec 07, 2020 Gestational Age in Weeks: 38 Gestational Age in Days: 4 Indication for : desires repeat Other reason for admission: Patient admitted last night after diagnosis of mild PreE. She also had clinical features of cholestasis of and a history of cholestasis in the past. The patient had limited PNC, per Dr. Rodriguez her [facility] provider covering. However due to >37 weeks and diagnosis of pre-E recommendation to deliver was made. She has had 2 prior cesareans Admission Nurse Assessment Rev: Yes Allergies and Home Medications Allergies Coded Allergies: morphine (Verified Adverse Reaction, Unknown, Hives, 08/22/20) Patient Home Medication List Home Medication List Reviewed: Yes Discontinued Medications Cephalexin (Cephalexin) 500 Mg Tablet, 500 MG PO TID Discontinued Reason: No Longer Taking Prescribed by: SUSAN RIGGINS on 08/25/20 1154 Last Action: Discontinued Hydrocodone/Acetaminophen (Hydrocodone-Acetamin 5-325 mg) 1 Each Tablet, 1 TAB PO Q6H PRN for PAIN-MODERATE (5-7) Discontinued Reason: No Longer Taking Prescribed by: SUASN RIGGINS on 08/25/20 1155 Last Action: Discontinued OB - History Hx of Present Care: Yes (Minimal) Ultrasounds: Other (US at approximately 31weeks gestation) Obstetrical Complications: Other (clinical cholestasis of , bile salts pending) Medical Complications: None Obstetrical History Hx : 3 Hx Para: 2 Hx # Term Pregnancies: 2 Number of Living Children: 2 Hx Complication: Yes (intrahepatic cholestasis with second ) Delivery History Hx Section: Yes (both past pregnancies were delivered via section) Patient Past Medical History Mild single current episode of major depressive disorder Fatigue Social History/Family History Alcohol Use: Denies Use Recreational Drug Use: Yes (Positive [employer] urine drug screen) Smoking Cessation: Current some day smoker (21 year history of smoking off and on, smokes up to 1/2 pack a day, has not smoked past 5 days) 2nd Hand Smoke Exposure: Yes Immunizations Hepatitis A: No Tetanus Booster (TDap): Less than 5yrs Rubella: unknown RPR/VDRL: Unknown GBS Status: Unknown HBsAG: Unknown OB - Admission Exam Physical Exam Vitals: Vital Signs 11/27/20 05:50 Temp 36.8 Pulse 111 Resp 18 B/P (MAP) 140/68 (92) Pulse Ox 97 O2 Delivery Room Air HEENT: NCAT Heart: Rhythm Normal Lungs: Clear Abdomen: Gravid Extremities: Other (Mild swelling of dorsal surface of feet) Cervical Dilatation: Fingertip Effacement: 0% Station: -3 Membranes: Intact Heart Rate: 130's Accelerations: Accelerations Present Decelerations: No Decelerations Short Term Variability: Present [place] Variability: Average (6-25) Contractions on Admission: None Intensity: Mild Labs Laboratory Tests Test 11/26/20 19:00 11/26/20 22:30 Range/Units Urine Color YELLOW Urine Clarity CLEAR Urine pH 6.0 5-9 Urine Specific [place] 1.010 L 1.016-1.022 Urine Protein 23 H 6-12 MG/DL Urine Glucose (UA) NEGATIVE NEGATIVE Urine Ketones NEGATIVE NEGATIVE Urine Nitrite NEGATIVE NEGATIVE Urine Bilirubin NEGATIVE NEGATIVE Urine Urobilinogen 0.2 < = 1.0 MG/DL Urine Leukocyte Esterase 1+ H NEGATIVE Urine RBC (Auto) 1+ H NEGATIVE Urine RBC 5-10 H /HPF Urine WBC 5-10 H /HPF Urine Squamous Epithelial Cells NONE /HPF Urine Renal Epithelial Cells NONE /HPF Urine Crystals NONE /LPF Urine Bacteria FEW H /HPF Urine Casts NONE /LPF Urine Mucus NEGATIVE /LPF Urine Culture Indicated YES Urine Creatinine 35 30-125 MG/DL Urine Protein/Creatinine Ratio 0.66 Urine Opiates Screen NEGATIVE NEGATIVE Urine Oxycodone Screen NEGATIVE NEGATIVE Urine Methadone Screen NEGATIVE NEGATIVE Urine Propoxyphene Screen NEGATIVE NEGATIVE Urine Barbiturates Screen NEGATIVE NEGATIVE Ur Tricyclic Antidepressants Screen NEGATIVE NEGATIVE Urine Phencyclidine Screen NEGATIVE NEGATIVE Urine Amphetamines Screen NEGATIVE NEGATIVE Urine Methamphetamines Screen NEGATIVE NEGATIVE Urine Benzodiazepines Screen NEGATIVE NEGATIVE Urine Cocaine Screen NEGATIVE NEGATIVE Urine Cannabinoids Screen POSITIVE H NEGATIVE White Blood Count 14.6 H 4.3-11.0 10^3/uL Red Blood Count 3.93 3.80-5.11 10^6/uL Hemoglobin 10.5 L 11.5-16.0 g/dL Hematocrit 33 L 35-52 % Mean Corpuscular Volume 84 80-99 fL Mean Corpuscular Hemoglobin 27 25-34 pg Mean Corpuscular Hemoglobin Concent 32 32-36 g/dL Red Cell Distribution Width 15.3 H 10.0-14.5 % Platelet Count 257 130-400 10^3/uL Mean Platelet Volume 12.4 H 9.0-12.2 fL Immature Granulocyte % (Auto) 1 % Neutrophils (%) (Auto) 73 42-75 % Lymphocytes (%) (Auto) 20 12-44 % Monocytes (%) (Auto) 6 0-12 % Eosinophils (%) (Auto) 0 0-10 % Basophils (%) (Auto) 0 0-10 % Neutrophils # (Auto) 10.6 H 1.8-7.8 10^3/uL Lymphocytes # (Auto) 2.9 1.0-4.0 10^3/uL Monocytes # (Auto) 0.8 0.0-1.0 10^3/uL Eosinophils # (Auto) 0.0 0.0-0.3 10^3/uL Basophils # (Auto) 0.0 0.0-0.1 10^3/uL Immature Granulocyte # (Auto) 0.1 0.0-0.1 10^3/uL Sodium Level 137 135-145 MMOL/L Potassium Level 3.8 3.6-5.0 MMOL/L Chloride Level 105 98-107 MMOL/L Carbon Dioxide Level 18 L 21-32 MMOL/L Anion Gap 14 5-14 MMOL/L Blood Urea Nitrogen 5 L 7-18 MG/DL Creatinine 0.59 L 0.60-1.30 MG/DL Estimat Glomerular Filtration Rate 115 BUN/Creatinine Ratio 8 Glucose Level 91 70-105 MG/DL Calcium Level 8.9 8.5-10.1 MG/DL Corrected Calcium 9.7 8.5-10.1 MG/DL Total Bilirubin 0.3 0.1-1.0 MG/DL Aspartate Amino Transf (AST/SGOT) 20 5-34 U/L Alanine Aminotransferase (ALT/SGPT) 32 0-55 U/L Alkaline Phosphatase 276 H 40-136 U/L Lactate Dehydrogenase 236 H 125-220 U/L Total Protein 7.1 6.4-8.2 GM/DL Albumin 3.0 L 3.2-4.5 GM/DL OB - Assessment/Plan/Diagnosis Assessment Assessment: section, other (possible obstetrical complication of intrahepatic cholestasis) Admission Dx 35 yo @ 38 weeks- per 32 week US Previous Mild Preeclampsia Clinical cholestasis of - bile salts pending Hx of ilicit drug use THC pos urine GBS unknown Admission Status: Inpatient Order (span 2 midnights) Reason for Inpatient Admission: Repeat Plan Plan: Section GALINA TONG DO Nov 27, 2020 06:47
[2020-11-27] MEDS ORDERED: TETANUS,DIPTH,PERTUSS P/F (BOOSTRIX) 0.5 ML VIAL IM SCH (07:00)
[2020-11-27] MEDS ORDERED: ONDANSETRON 4 MG/2 ML (SDV) Z0FRAN IVP PRN (07:00)
[2020-11-27] MEDS ORDERED: MEASLES,MUMPS,RUBELLA 1 EA INJ SC SCH (07:00)
[2020-11-27] MEDS ORDERED: NALOXONE 0.4 MG/ML 1 ML (NARCAN) VIAL IV PRN (07:00)
[2020-11-27] MEDS ORDERED: METHYLERGONOVINE 0.2 MG/ML (METHERGINE) AMP ONE (08:02)
[2020-11-27] MEDS ORDERED: OXYTOCIN PRE-MIX DRIP 500 ML IV ONE (09:17)
--- NOTE | 2020-11-27 09:24 | Diagnostic Imaging Report ---
CHEST 1 VIEW, AP/PA ONLY Indication: Central line placement Comparison: None available. Findings: No focal airspace disease in the visualized lungs. Please note that the posterior lower lobes are poorly evaluated by portable radiography. No pleural effusion or pneumothorax. Normal cardiomediastinal silhouette. Right IJ central venous catheter has tip terminating in the upper right atrium. Impression: 1. Right IJ central venous catheter has tip terminating in the upper right atrium. 2. No pneumothorax. Dictated by: Dictated on workstation # [id number]
[2020-11-27] MEDS ORDERED: KETOROLAC 30 MG/ML VIAL ONE (09:32)
[2020-11-27] MEDS: KETOROLAC 30 MG/ML VIAL IV SCH ×3 (09:35→20:50)
--- NOTE | 2020-11-27 10:47 | OPERATIVE REPORT ---
DATE OF SERVICE: PREOPERATIVE DIAGNOSES: 1. A 35-year-old G3, P2 at 38 weeks and 4 days gestation. 2. Limited care. 3. Previous section x2. 4. Mild preeclampsia. 5. Clinical suspicion for intrahepatic cholestasis of . 6. History of illicit drug use with a positive THC on urine drug screen. POSTOPERATIVE DIAGNOSES: 1. A 35-year-old G3, P2 at 38 weeks and 4 days gestation. 2. Limited care. 3. Previous section x2. 4. Mild preeclampsia. 5. Clinical suspicion for intrahepatic cholestasis of . 6. History of illicit drug use with a positive THC on urine drug screen. PROCEDURE: Repeat low transverse section. SURGEON: Reza Valdivia DO ANESTHESIA: Spinal. ESTIMATED BLOOD LOSS: 600 mL. URINE OUTPUT: 75 mL clear at the end of the procedure. FLUIDS: 200 mL lactated Ringer's solution. FINDINGS: A live male weighing 8 pounds 2 ounces, Apgars of 3, 5 and 8. Grossly normal appearing uterus, bilateral fallopian tubes and ovaries. SPECIMEN SENT: Placenta. INDICATIONS FOR PROCEDURE: This 35-year-old female is a patient who presented last night having just eaten dinner with blood pressures of 140s to 150s/100s. The urine protein creatinine ratio of 0.6. She also came in due to her itchiness that she reported having for the past one to two weeks; however, she had been noncompliant with visits according to the [facility] provider, Dr. Rodriguez. Bile salts were ordered last night. The patient's blood pressures were clinically stable. Therefore, we waited 8 hours for her to be n.p.o. before proceeding with delivery. This morning when I arrived, I discussed with the patient delivery. There were still struggling to obtain an IV site. Anesthesia was called in for IV placement and finally they were able to acquire site in the patient's right arm. She was taken back to the operating room where spinal analgesia was placed. She was prepped and draped in normal sterile fashion, placed in supine position with a leftward tilt, after which this IV went bad as well. Her anesthesia was tested and found to be adequate. I then proceeded with making a Pfannenstiel skin incision through the previously existing scar using knife and carried down layer of fascia using Bovie cautery. The fascial incision extended laterally using Bovie cautery. Superior aspect of fascial incision was then grasped with Augusta clamps, tented up and dissected off the underlying rectus muscles. Inferior aspect of fascial incision was then grasped with Augusta clamps, tented up and dissected off the underlying rectus muscles. Rectus muscles were then dissected down the midline using sharp and blunt dissection, which exposed the peritoneum, which I entered bluntly and extended using blunt traction. Leodan ring retractor was placed in the peritoneal incision, which offers excellent lateral sidewall retraction. I am notified at this point by anesthesia that the patient's blood pressures dropped down to 70s/30s, they are unable to give her any type of ephedrine to help with her blood pressure drop after spinal placement, no other able to give her fluid bolus. Anesthesia was attempting to get internal jugular venous access. At this point, I made a low transverse incision into the uterus using a knife and extended the uterine incision laterally using bandage scissors. Amniotomy was then performed using Allis clamp. Clear fluid was noted. Infant was found in the vertex presentation. The infant's head was elevated up to the incision where the nares and oropharynx were bulb suctioned. Anterior and posterior shoulders were delivered. Infant was then brought to the operative field where the cord was doubly clamped and cut and was handed off to waiting nurses in attendance. Cord blood was collected, 3-vessel cord with intact placenta was delivered spontaneously thereafter. I am unable to administer IV Pitocin and due to the patient's low blood pressure and need for uterine tone, I have anesthesia administer 0.2 mg of Methergine IM to help with uterine tone. I then cleared the uterus out of all endometrial clots and debris. I then proceeded with closing the uterine incision using 0 Vicryl suture in running locked fashion. Second layer of imbricating 0 Monocryl was placed. Excellent hemostasis was noted after doing this. There is still some bogginess, which did significantly better with fundal massage and uterine tone was noted at that point. I placed the uterus back in the pelvis and copiously irrigated the pelvis using normal saline. Once again active bleeding noted from any of my dissection planes. I then placed Interceed antiadhesive over my low transverse incision. I removed the Leodan ring retractor and then proceeded with closing the peritoneum and rectus muscles using 0 Vicryl suture in a running fashion. The fascia was then reapproximated using 0 Vicryl suture in running fashion. Subcutaneous tissue was reapproximated using 3-0 plain interrupted subcutaneous stitch and skin reapproximated using 4-0 Monocryl running subcuticular. Dermabond was applied to incision and sterile dressing with adhesive white tape. The patient tolerated the procedure well; however, IV access was finally obtained in the right leg during the recovery process with nurses trying on three extremities and anesthesia trying internal jugular access. Due to difficulty in placement, general surgery is contacted to accompany with central line so they gave IV access for the potential complications that may occur surrounding her preeclampsia diagnosis. Lap and sponge counts were correct at the end of the procedure. Instrument counts correct as well. Two grams of Ancef are administered preoperatively for infection prophylaxis at 30 milliunits of Pitocin and running IV through the right lower extremity IV when I am leaving the room and surgery is arriving to place a central line. Job ID: [id number] DocumentID: [id number] Dictated Date: 11/27/2020 08:51:32 Control Area Operator Date: 11/27/2020 10:21:18 Dictated By: DO ADALGISA DURAND
[2020-11-27] MEDS: OXYTOCIN PRE-MIX DRIP 500 ML IV SCH (11:06)
[2020-11-27] MEDS: HYDROcodone/APAP 5 MG/325 MG (LORTAB) TAB PO PRN ×2 (11:07→18:35)
--- NOTE | 2020-11-27 14:17 | Consultation - Surgery ---
History of Present Illness History of Present Illness Patient Consulted On(lopez/time) 11/27/20 14:12 Date Seen by Provider: Nov 27, 2020 Time Seen by Provider: 08:30 History of Present Illness Consult requested by Dr. TONG for poor venous access, hypotension. Patient is a 35-year-old female who presented to the hospital 37 weeks . Patient was taken for section this morning. Patient with mild preeclampsia. Patient had IV access but this was lost. Multiple attempts were obtained to get access and only a IV was able to be placed in the lower extremity. Patient had blood pressures in the 70s over 30s at one point. Dr. TONG was concerned about adequate IV access in case any complications of preeclampsia occurred. Patient currently in the operating room due to just being completed. Patient was discussed placing central line placement which she does understand. Allergies and Home Medications Allergies Coded Allergies: morphine (Verified Adverse Reaction, Unknown, Hives, 08/22/20) Patient Home Medication List Home Medication List Reviewed: Yes Discontinued Medications Cephalexin (Cephalexin) 500 Mg Tablet, 500 MG PO TID Discontinued Reason: No Longer Taking Prescribed by: SUSAN RIGGINS on 08/25/20 1154 Last Action: Discontinued Hydrocodone/Acetaminophen (Hydrocodone-Acetamin 5-325 mg) 1 Each Tablet, 1 TAB PO Q6H PRN for PAIN-MODERATE (5-7) Discontinued Reason: No Longer Taking Prescribed by: SUSAN RIGGINS on 08/25/20 1155 Last Action: Discontinued Past Cdzahnn-Fftasr-Kvgvvr Hx Patient Social History Drug of Choice: marijuana Smoking Status: Current Everyday Smoker Type Used: Cigarettes 2nd Hand Smoke Exposure: Yes Alcohol Use?: No Substance type: Marijuana Have you traveled recently?: No Immunizations Up To Date Tetanus Booster (TDap): Less than 5yrs Reproductive System Hx : 3 Hx Para: 2 Reviewed Nursing Assessment Reviewed/Agree w Nursing PMH: Yes Family Medical History Significant Family History: No Pertinent Family Hx Review of Systems-General ROS-Unable to Obtain: Patient currently in operating room. Physical Exam-General Problems Physical Exam Vital Signs Vital Signs - First Documented Capillary Refill : Less Than 3 Seconds General Appearance: WD/WN, no apparent distress HEENT: PERRL/EOMI, normal ENT inspection Neck: supple, normal inspection Respiratory: chest non-tender, no respiratory distress, no accessory muscle use Cardiovascular: regular rate, rhythm, no JVD Gastrointestinal: other (Lower Pfannenstiel incision) Rectal: deferred Extremities: normal inspection Neurologic/Psychiatric: alert, normal mood/affect Skin: normal color, warm/dry Lymphatic: no adenopathy Data Review Labs Laboratory Tests 11/26/20 19:00: Urine Color YELLOW, Urine Clarity CLEAR, Urine pH 6.0, Urine Specific [place] 1.010L, Urine Protein 23H, Urine Glucose (UA) NEGATIVE, Urine Ketones NEGATIVE, Urine Nitrite NEGATIVE, Urine Bilirubin NEGATIVE, Urine Urobilinogen 0.2, Urine Leukocyte Esterase 1+H, Urine RBC (Auto) 1+H, Urine RBC 5-10H, Urine WBC 5-10H, Urine Squamous Epithelial Cells NONE, Urine Renal Epithelial Cells NONE, Urine Crystals NONE, Urine Bacteria FEWH, Urine Casts NONE, Urine Mucus NEGATIVE, Urine Culture Indicated YES, Urine Creatinine 35, Urine Protein/Creatinine Ratio 0.66, Urine Opiates Screen NEGATIVE, Urine Oxycodone Screen NEGATIVE, Urine Methadone Screen NEGATIVE, Urine Propoxyphene Screen NEGATIVE, Urine Barbiturates Screen NEGATIVE, Ur Tricyclic Antidepressants Screen NEGATIVE, Urine Phencyclidine Screen NEGATIVE, Urine Amphetamines Screen NEGATIVE, Urine M ethamphetamines Screen NEGATIVE, Urine Benzodiazepines Screen NEGATIVE, Urine Cocaine Screen NEGATIVE, Urine Cannabinoids Screen POSITIVEH 11/26/20 22:30: White Blood Count 14.6H, Red Blood Count 3.93, Hemoglobin 10.5L, Hematocrit 33L, Mean Corpuscular Volume 84, Mean Corpuscular Hemoglobin 27, Mean Corpuscular Hemoglobin Concent 32, Red Cell Distribution Width 15.3H, Platelet Count 257, Mean Platelet Volume 12.4H, Immature Granulocyte % (Auto) 1, Neutrophils (%) (Auto) 73, Lymphocytes (%) (Auto) 20, Monocytes (%) (Auto) 6, Eosinophils (%) (Auto) 0, Basophils (%) (Auto) 0, Neutrophils # (Auto) 10.6H, Lymphocytes # (Auto) 2.9, Monocytes # (Auto) 0.8, Eosinophils # (Auto) 0.0, Basophils # (Auto) 0.0, Immature Granulocyte # (Auto) 0.1, Sodium Level 137, Potassium Level 3.8, Chloride Level 105, Carbon Dioxide Level 18L, Anion Gap 14, Blood Urea Nitrogen 5L, Creatinine 0.59L, Estimat Glomerular Filtration Rate 115, BUN/Creatinine Ratio 8, Glucose Level 91, Calcium Level 8.9, Corrected Calcium 9.7, Total Bilirubin 0.3, Aspartate Amino Transf (AST/SGOT) 20, Alanine Aminotransferase (ALT/SGPT) 32, Alkaline Phosphatase 276H, Lactate Dehydrogenase 236H, Total Protein 7.1, Albumin 3.0L Microbiology 11/26/20 Urine Culture - Preliminary, Resulted Escherichia coli Assessment/Plan Assessment/Plan Assessment/Plan Status post section Preeclampsia Hypotension Poor venous access Illicit drug use Patient is a 35-year-old female who underwent section. Patient with hypotension and poor venous access. I been asked to place a central line. To be placed emergently. Patient still in the operating room. Patient was discussed need for line access in which she does demonstrate understanding when discussing with her. Central line to be placed under ultrasound guidance. Procedure right internal jugular vein central line placement with ultrasound guidance: The right neck was prepped draped in sterile fashion. Ultrasound was used to isolate the right internal jugular vein. Local anesthetic was infiltrated in the right internal jugular vein was accessed dark nonpulsatile blood was withdrawn. The wire was inserted down the needle and the needle was removed. 11 blade scalpel was used to make a small stab incision at the insertion point. The dilator was then advanced over the wire and removed. The triple-lumen catheter was then advanced over the wire and the wire was removed. All ports were accessed and flushed without difficulty. The catheter was secured using 3-0 silk suture. The areas washed and dried sterile bandage was applied. Chest x-ray pending. URIAH KURTZ DO Nov 27, 2020 14:17
[2020-11-27] MEDS: DOCUSATE SODIUM 100 MG (COLACE) CAP PO SCH (20:50)
[2020-11-28 01:00] VITALS: BP 152/93
[2020-11-28] MEDS: HYDROcodone/APAP 5 MG/325 MG (LORTAB) TAB PO PRN ×5 (01:05→23:34)
[2020-11-28] MEDS: KETOROLAC 30 MG/ML VIAL IV SCH (02:39)
[2020-11-28 05:30] LABS: BASOPHILS % (AUTO) 0 % (0-10); EOSINOPHILS # (AUTO) 0.1 10^3/uL (0.0-0.3); EOSINOPHILS % (AUTO) 1 % (0-10); HEMATOCRIT 31 % (35-52); HEMOGLOBIN 9.7 g/dL (11.5-16.0); LYMPHOCYTES # (AUTO) 2.9 10^3/uL (1.0-4.0); LYMPHOCYTES % (AUTO) 24 % (12-44); MEAN CORPUSCULAR HEMOGLOBIN 26 pg (25-34); MEAN CORPUSCULAR HGB CONC 32 g/dL (32-36); MEAN CORPUSCULAR VOLUME 84 fL (80-99); MEAN PLATELET VOLUME 12.6 fL (9.0-12.2); MONOCYTES # (AUTO) 0.8 10^3/uL (0.0-1.0); MONOCYTES % (AUTO) 7 % (0-12); NEUTROPHILS # (AUTO) 7.8 10^3/uL (1.8-7.8); NEUTROPHILS % (AUTO) 67 % (42-75); PLATELET COUNT 223 10^3/uL (130-400); WHITE BLOOD COUNT 11.7 10^3/uL (4.3-11.0)
[2020-11-28 06:30] VITALS: BP 132/88
--- NOTE | 2020-11-28 07:12 | Postpartum Progress Note ---
Note Note Day # 1 Subjective: Patient is without complaints. Ambulating, voiding. Tolerating a regular diet without nausea or vomiting. Normal lochia. Pain is well controlled with oral pain medications. Objective: Physical Exam: General - Alert and oriented, no apparent distress Abdomen - Soft, appropriately tender to palpation, non-distended, fundus firm at umbilicus Extremities - no edema, negative Miguel's bilaterally Incision- c/d/i Assessment: POD 1 RLTCS Acute blood loss anemia PreE- labile BP pp Plan: Routine care. Starting on Labetalol 200 mg BID Encourage breast feeding. Encourage ambulation. Ferrous sulfate supplementation. Plan for discharge tomorrow with BP control Vitals - Labs Vital Signs - I&O Vital Signs Date Time Temp Pulse Resp B/P (MAP) Pulse Ox O2 Delivery O2 Flow Rate FiO2 11/28/20 06:30 36.5 87 18 132/88 (103) 98 Room Air 11/28/20 01:00 36.7 96 18 152/93 (112) 97 Room Air 11/27/20 20:10 36.6 96 18 141/91 (108) 96 Room Air 11/27/20 15:35 36.6 100 18 134/74 (94) 96 Room Air 11/27/20 12:16 Room Air 11/27/20 12:15 36.7 106 18 138/74 (95) 95 Room Air 11/27/20 10:07 36.1 97 18 135/68 (90) 100 Room Air 11/27/20 10:00 Room Air 11/27/20 09:58 37.0 14 117/77 (90) 95 Room Air 11/27/20 09:48 14 115/78 (90) 96 Room Air 11/27/20 09:38 14 116/72 (87) 97 Room Air 11/27/20 09:30 Room Air 11/27/20 09:28 16 116/69 (85) 96 Room Air 11/27/20 09:18 16 113/66 (82) 96 Room Air 11/27/20 09:08 14 111/64 (80) 95 Room Air 11/27/20 08:58 Room Air 11/27/20 08:58 36.7 16 117/65 (82) 96 Room Air I & O 11/28/20 07:00 Intake Total 500 ml Output Total 505 ml Balance -5 ml Labs Laboratory Tests 11/28/20 04:45: White Blood Count 11.7H, Red Blood Count 3.69L, Hemoglobin 9.7L, Hematocrit 31L, Mean Corpuscular Volume 84, Mean Corpuscular Hemoglobin 26, Mean Corpuscular Hemoglobin Concent 32, Red Cell Distribution Width 15.2H, Platelet Count 223, Mean Platelet Volume 12.6H, Immature Granulocyte % (Auto) 1, Neutrophils (%) (Auto) 67, Lymphocytes (%) (Auto) 24, Monocytes (%) (Auto) 7, Eosinophils (%) (Auto) 1, Basophils (%) (Auto) 0, Neutrophils # (Auto) 7.8, Lymphocytes # (Auto) 2.9, Monocytes # (Auto) 0.8, Eosinophils # (Auto) 0.1, Basophils # (Auto) 0.0, Immature Granulocyte # (Auto) 0.1 Microbiology 11/26/20 Urine Culture - Preliminary, Resulted Escherichia coli GALINA TONG DO Nov 28, 2020 07:12
--- NOTE | 2020-11-28 07:39 | Anesthesia-Regional Post-Op ---
Regional Patient Condition Mental Status: Alert, Oriented x3 Circulation: Same as Pre-Op Headache: Absent Sensation: Full Recovery Motor Block: Absent Post Op Complications Complications None Follow Up Care/Instructions Patient Instructions None needed. Anesthesia/Patient Condition Patient is doing well, no complaints, stable vital signs, no apparent adverse anesthesia problems. No complications reported per nursing. [place] [facility]: No CHANDU AMARO CRNA Nov 28, 2020 07:39
[2020-11-28] MEDS ORDERED: IBUPROFEN 600 MG (MOTRIN) TAB PO ONE (09:21)
[2020-11-28] MEDS: LABETALOL 200 MG (NORMODYNE) TAB PO SCH ×2 (09:23→21:01)
[2020-11-28] MEDS: DOCUSATE SODIUM 100 MG (COLACE) CAP PO SCH ×3 (09:23→21:29)
[2020-11-28] MEDS: IBUPROFEN 600 MG (MOTRIN) TAB PO SCH ×3 (09:24→23:34)
[2020-11-28 09:26] VITALS: BP 154/82
[2020-11-28] MEDS: CEPHALEXIN 250 MG (KEFLEX) CAP PO SCH ×3 (12:19→21:01)
[2020-11-28] MEDS: OXYTOCIN PRE-MIX DRIP 500 ML IV SCH (12:47)
[2020-11-28 15:32] VITALS: BP 131/80
[2020-11-28] MEDS: CATHETER FLUSH 10 ML SYR IV SCH ×2 (17:11→21:30)
[2020-11-28] MEDS ORDERED: TRIM/SULFAMETH 160/800 (SEPTRA DS) TAB PO SCH (18:00)
[2020-11-28 21:00] VITALS: BP 142/67
[2020-11-29 03:12] VITALS: BP 149/67
[2020-11-29] MEDS: IBUPROFEN 600 MG (MOTRIN) TAB PO SCH ×2 (06:19→12:40)
[2020-11-29] MEDS: HYDROcodone/APAP 5 MG/325 MG (LORTAB) TAB PO PRN ×2 (06:19→12:41)
[2020-11-29] MEDS: CATHETER FLUSH 10 ML SYR IV SCH ×3 (06:20→06:23)
[2020-11-29] MEDS: D5 LR IV SOLUTION 1,000 ML IV SCH ×2 (06:22→06:23)
--- NOTE | 2020-11-29 08:07 | Postpartum Progress Note ---
Note Note Day # 2 Subjective: Patient is without complaints. Ambulating, voiding. Tolerating a regular diet without nausea or vomiting. Normal lochia. Pain is well controlled with oral pain medications. Objective: Physical Exam: General - Alert and oriented, no apparent distress Abdomen - Soft, appropriately tender to palpation, non-distended, fundus firm at umbilicus Extremities - no edema, negative Miguel's bilaterally Incision- c/d/i Assessment: POD 2 RTLCS CHTN= superimposed preE. Plan: Routine care. Continue Labetalol Encourage breast feeding. Encourage ambulation. Ferrous sulfate supplementation. Plan for discharge today Vitals - Labs Vital Signs - I&O Vital Signs Date Time Temp Pulse Resp B/P (MAP) Pulse Ox O2 Delivery O2 Flow Rate FiO2 11/29/20 03:12 36.5 95 18 149/67 (94) 96 Room Air 11/28/20 21:00 36.4 105 18 142/67 (92) 95 Room Air 11/28/20 15:32 36.4 95 18 131/80 (97) 95 Room Air 11/28/20 09:26 36.1 100 18 154/82 (106) 92 Room Air Labs Microbiology 11/26/20 Urine Culture - Final, Complete Escherichia coli GALINA TONG DO Nov 29, 2020 08:07
--- NOTE | 2020-11-29 08:07 | Discharge Inst-Women's Service ---
Discharge Inst-Women's Serv Depart Medication/Instructions New, Converted or Re-Newed RX: Transmitted to Pharmacy Problems Reviewed?: Yes Consults/Follow Up Additional Follow Up: Yes Activity Activity: Activity as Tolerated Driving Instructions: No Driving for 1 Week NO SMOKING: NO SMOKING Nothing Inside Vagina: No Douching, No [place], No Tampons Diet Discharge Diet: No Restrictions Symptoms to Report to : Bleeding Excessive, Pain Increased, Fever Over 101 Degrees F, Vaginal Bleeding Increase, Questions/Concerns For Any Problems or Questions: Contact Your Physician Skin/Wound Care Infection Signs and Symptoms: Increased Redness, Foul Odor of Wound, Increased Drainage, Skin Itchy or Has a Rash, Increased Swelling, Temperature Above 101 F Operative Area Clean and Dry: Keep Incision Clean/Dry Stitches/[place]/Dermabond: Dermabond, Care of Stitches Bathing Instructions: GALINA Riojas DO Nov 29, 2020 08:07
[2020-11-29] MEDS ORDERED: ACHD5005 PO (08:09)
[2020-11-29] MEDS ORDERED: DOCU100C37 PO (08:09)
[2020-11-29] MEDS ORDERED: IBUP-844 PO (08:09)
[2020-11-29] MEDS ORDERED: CEPH250C PO (08:09)
[2020-11-29] MEDS ORDERED: LABE200T7 PO (08:09)
[2020-11-29 08:15] VITALS: BP 128/73
[2020-11-29] MEDS: LABETALOL 200 MG (NORMODYNE) TAB PO SCH (08:34)
[2020-11-29] MEDS: DOCUSATE SODIUM 100 MG (COLACE) CAP PO SCH (08:34)
[2020-11-29] MEDS: CEPHALEXIN 250 MG (KEFLEX) CAP PO SCH ×3 (08:34→17:13)
== END 2020-11-29 17:22 | disposition home or self-care (01) | DRG 786 ==
LOC: WSo 18:49 → LDRP 18:49 → WSo 11-27 06:08 → LDRP 11-27 12:22
PROVIDERS: ADMIT Family Medicine; ATTEND Obstetrics & Gynecology
PROC: 10D00Z1 Extraction of Products of Conception, Low, Open Approach (ICD-10-PCS; principal; 2020-11-27 07:27)
PROC: 02H633Z Insertion of Infusion Device into Right Atrium, Percutaneous Approach (ICD-10-PCS; 2020-11-28)
DX: O34.211 Maternal care for low transverse scar from previous cesarean delivery (principal); K83.1 Obstruction of bile duct; O26.62 Liver and biliary tract disorders in childbirth; O99.324 Drug use complicating childbirth; D62 Acute posthemorrhagic anemia; Z3A.38 38 weeks gestation of pregnancy; Z37.0 Single live birth; O14.04 Mild to moderate pre-eclampsia, complicating childbirth; O99.334 Smoking (tobacco) complicating childbirth; F17.210 Nicotine dependence, cigarettes, uncomplicated; O75.89 Other specified complications of labor and delivery; I95.9 Hypotension, unspecified; O90.81 Anemia of the puerperium; F12.10 Cannabis abuse, uncomplicated
CPT/HCPCS: 36415; 71045; 80053; 80306; 81000; 82570; 83615; 83789; 84156; 85025; 86703; 86762; 86780; 86850; 86900; 86901; 87077; 87088; 87186; 87340; 94664; 99212